=== PATIENT | male | born 1955 | race Caucasian/White ===

== ENCOUNTER 2018-02-20 13:22 | Inpatient (IN) ==
[2018-02-22 08:29] VITALS: BP 157/72
== END 2018-02-22 11:15 | disposition home or self-care (01) | DRG 287 ==
LOC: N.TELES 14:51 → N.CC 16:13 → N.TELEN 02-22 06:02
PROVIDERS: ADMIT Internal Medicine Interventional Cardiology; ATTEND Internal Medicine Interventional Cardiology

== ENCOUNTER 2018-10-14 11:11 | Observation (INO) ==
[2018-10-14] MEDS ORDERED: methylPREDNISolone SOD SUC 125 MG/2 ML VIAL IV STA (11:36)
[2018-10-14] MEDS ORDERED: MORPHINE 4 MG/1 ML VIAL IV STA (11:36)
[2018-10-14] MEDS ORDERED: ONDANSETRON 4 MG/2 ML VIAL IV STA (11:36)
[2018-10-14] MEDS ORDERED: ALBUTEROL/IPRATROPIUM 3 ML NEB RESP TX STA (11:36)
[2018-10-14] MEDS ORDERED: ASPIRIN 325 MG TABLET PO STA (11:36)
[2018-10-14] MEDS ORDERED: NITROGLYCERIN 2% OINT 1 INCH/GM PACK TOP STA (11:36)
[2018-10-14] MEDS ORDERED: ALUM/MAG/SIMETH/LIDO VISC 1:1 30 ML BOTTLE PO STA (11:36)
[2018-10-14 12:08] LABS: Basophils # 0.1 10*3/uL (0.0-0.2); Eosinophils # 0.2 10*3/uL (0.0-0.87); Eosinophils % 4.7 % (0.00-10.9); Hematocrit 41.6 VOL% (42.0-52.0); Hemoglobin 13.7 GM/DL (14.0-18.0); Immature Granulocytes % 0.6 %; Immature Granulocytes Absolute 0.03 #; Lymphocytes # 1.3 10*3/uL (1.4-4.0); Lymphocytes % 26.4 % (21.2-54.2); Mean Corpuscular HGB Conc 32.9 GM/DL (32-36); Mean Corpuscular Hemoglobin 34 PG (27-34); Mean Corpuscular Volume 104.3 FL (87-102); Mean Platelet Volume 8.7 FL (9.6-12.0); Monocytes # 0.7 10*3/uL (0.11-0.8); Monocytes % 13.4 % (1.7-12.7); Neutrophils # 2.7 10*3/uL (1.4-7.4); Neutrophils % 53.9 % (38.7-73.9); Platelet Count 292 T/CUMM (130-400); Red Blood Count 3.99 MC/CUMM (3.8-5.5); Red Cell Distribution Width 13.2 % (9.3-17.3); White Blood Count 5.1 T/CUMM (4-12)
[2018-10-14 12:16] LABS: PT Patient Result 10.6 SECS
[2018-10-14 12:54] LABS: Albumin 3.2 G/DL (3.4-5.0); Bilirubin,Total 1.1 MG/DL (0.2-1.0); Calcium 8.7 MG/DL (8.5-10.1); Osmolality,Calculated 271.8 MOS/KG (273-304); Potassium 4.8 MMOL/L (3.5-5.1); Total Protein 7.2 G/DL (6.4-8.3)
[2018-10-14] MEDS ORDERED: MORPHINE 4 MG/1 ML VIAL IV PRN (13:46)
[2018-10-14] MEDS ORDERED: diphenhydrAMINE CAP 25 MG CAPSULE PO PRN (13:46)
[2018-10-14] MEDS ORDERED: NICOTINE 21 MG/24 HR PATCH TRANSDERM PRN (13:46)
[2018-10-14] MEDS ORDERED: MAGNESIUM SULF RIDER 4 GM in PREMIX 1 EACH IV PRN (13:46)
[2018-10-14] MEDS ORDERED: ZALEPLON 5 MG CAPSULE PO PRN (13:46)
[2018-10-14] MEDS ORDERED: DOCUSATE SODIUM 100 MG CAPSULE PO PRN (13:46)
[2018-10-14] MEDS ORDERED: POTASSIUM CHLORIDE 20 MEQ TABLET PO PRN ×2 (13:46→13:53)
[2018-10-14] MEDS ORDERED: MAGNESIUM SULF RIDER 2 GM in PREMIX 1 EACH IV PRN (13:46)
[2018-10-14] MEDS ORDERED: ONDANSETRON 4 MG/2 ML VIAL IV PRN (13:46)
[2018-10-14] MEDS ORDERED: PROMETHAZINE 25 MG TABLET PO PRN (13:46)
[2018-10-14] MEDS ORDERED: BISACODYL 5 MG TABLET PO PRN (13:46)
[2018-10-14] MEDS ORDERED: guaiFENesin/DM ER 600-30 MG TABLET PO PRN (13:46)
[2018-10-14] MEDS ORDERED: NITROGLYCERIN SL 0.4 MG TABLET SL PRN (13:53)
[2018-10-14] MEDS: ALBUTEROL/IPRATROPIUM 3 ML NEB RESP TX SCH ×3 (14:19→23:53)
[2018-10-14 14:33] LABS: Risk Ratio 3.39; Thyroid Stimulating Hormone 1.25 uIU/ml (0.358-3.74); VLDL CHOLESTEROL 35.4 MG/DL
[2018-10-14 15:38] LABS: ABG Base Excess -3.7 MMOL/L (-2.5-2.5); ABG Oxygen Saturation 82.5 % (95-100); ABG PCO2 41.1 MM HG (35-48); ABG PH 7.336 (7.35-7.45); ABG PO2 50.2 MM HG (80-95); ABG TCO2 19.2 MMOL/L (23-27)
[2018-10-14] MEDS: ENOXAPARIN 80 MG/0.8 ML SYRINGE SUBCUT SCH (16:30)
[2018-10-14] MEDS: NITROGLYCERIN 2% OINT 1 INCH/GM PACK TOP SCH (19:05)
[2018-10-14 20:52] LABS: Apearance,Urine CLEAR (Clear); Blood, Urine Negative (Negative); Glucose,Urine (UA) Negative (Negative); Hyaline Casts,Urine 33 /LPF (0-3); Ketones,Urine Negative (Negative); Mucus,Urine Occasional /LPF (Occasional); Nitrite,Urine Negative (Negative); Protein,Urine 30 MG/DL; Squamous Epithelial Cell,Urine Occasional /HPF (0-10); Urine Color Yellow (Yellow); Urine Specific Gravity 1.028 (1.001-1.035); Urine Urobilinogen < 2.0 EU/DL (0.2-1.0)
[2018-10-14 20:57] LABS: Bilirubin,Urine Moderate mg/dL (Negative)
[2018-10-14] MEDS ORDERED: ATORVASTATIN 40 MG TABLET PO SCH (21:00)
[2018-10-14] MEDS ORDERED: RANOLAZINE 500 MG TABLET PO SCH (21:00)
[2018-10-14] MEDS ORDERED: POTASSIUM CHLORIDE 10 MEQ TABLET PO SCH (21:00)
[2018-10-14] MEDS: METOPROLOL SUCCINATE XL 100 MG TABLET PO SCH (21:52)
[2018-10-14] MEDS: NABUMETONE 500 MG TABLET PO SCH (21:52)
[2018-10-14] MEDS: TOFACITINIB CITRATE 5 MG PO SCH (21:53)
[2018-10-15] MEDS: NITROGLYCERIN 2% OINT 1 INCH/GM PACK TOP SCH ×4 (00:38→18:29)
[2018-10-15] MEDS: ALBUTEROL/IPRATROPIUM 3 ML NEB RESP TX SCH ×6 (03:14→23:15)
[2018-10-15] MEDS: ENOXAPARIN 80 MG/0.8 ML SYRINGE SUBCUT SCH ×2 (04:57→14:15)
[2018-10-15 06:05] LABS: Basophils % 0.8 % (0.0-0.8); Eosinophils % 0.6 % (0.00-10.9); Hematocrit 35.6 VOL% (42.0-52.0); Immature Granulocytes % 0.4 %; Immature Granulocytes Absolute 0.02 #; Lymphocytes # 1.2 10*3/uL (1.4-4.0); Lymphocytes % 22.9 % (21.2-54.2); Mean Corpuscular HGB Conc 32.9 GM/DL (32-36); Mean Corpuscular Hemoglobin 34 PG (27-34); Mean Corpuscular Volume 103.2 FL (87-102); Mean Platelet Volume 9.4 FL (9.6-12.0); Monocytes % 18.8 % (1.7-12.7); Neutrophils # 2.9 10*3/uL (1.4-7.4); Neutrophils % 56.5 % (38.7-73.9); Platelet Count 260 T/CUMM (130-400); Red Blood Count 3.45 MC/CUMM (3.8-5.5); Red Cell Distribution Width 13.2 % (9.3-17.3); White Blood Count 5.2 T/CUMM (4-12)
[2018-10-15 06:06] LABS: Hemoglobin 11.7 GM/DL (14.0-18.0)
[2018-10-15 06:08] LABS: Alanine Aminotransferase 17 U/L (16-61); Albumin 2.5 G/DL (3.4-5.0); Alkaline Phosphatase 68 U/L (45-117); Aspartate Amino Transferase 24 U/L (0-37); Blood Urea Nitrogen 11 MG/DL (7-18); Calcium 8.3 MG/DL (8.5-10.1); Glucose 120 MG/DL (74-106); Osmolality,Calculated 274.7 MOS/KG (273-304); Potassium 5.4 MMOL/L (3.5-5.1); Sodium 138 MMOL/L (136-145); Total Protein 6.6 G/DL (6.4-8.3); Troponin I < 0.015 NG/ML (0.00-0.045)
[2018-10-15 06:30] LABS: Anisocytosis 2+; Band Neutrophils 2 % (0-10); Eosinophils 1 % (0-10); Hypochromasia 1+; Lymphocytes 22 % (20-55); Macrocytosis 2+; Nucleated Red Blood Cells 2 (0-5); Ovalocytes Few; Platelet Estimate Normal; Segmented Neutrophils 56 % (50-85); Target Cells 1+; Total Cells Counted 100
[2018-10-15] MEDS: LEFLUNOMIDE 10 MG TABLET PO SCH (09:30)
[2018-10-15] MEDS: CLOPIDOGREL 75 MG TABLET PO SCH (09:31)
[2018-10-15] MEDS: ASPIRIN EC 81 MG TABLET PO SCH (09:31)
[2018-10-15] MEDS: PANTOPRAZOLE 40 MG TABLET PO SCH (09:31)
[2018-10-15] MEDS: FUROSEMIDE 40 MG TABLET PO SCH (09:31)
[2018-10-15] MEDS: RANOLAZINE 500 MG TABLET PO SCH ×2 (09:31→20:37)
[2018-10-15] MEDS: METOPROLOL SUCCINATE XL 100 MG TABLET PO SCH ×2 (09:31→20:37)
[2018-10-15] MEDS: NABUMETONE 500 MG TABLET PO SCH ×2 (09:35→20:37)
[2018-10-15] MEDS: SODIUM CHLORIDE 0.9% 1,000 ML IV SCH ×2 (09:39→18:30)
[2018-10-15] MEDS: TOFACITINIB CITRATE 5 MG PO SCH ×2 (09:39→21:29)
[2018-10-15] MEDS ORDERED: MAGNESIUM SULF RIDER 2 GM in PREMIX 1 EACH IV PRN (12:44)
[2018-10-15] MEDS ORDERED: POTASSIUM CHLORIDE RIDER 10 MEQ in PREMIX 1 EACH IV PRN (12:44)
[2018-10-15] MEDS ORDERED: SODIUM POLYSTYRENE SULFATE 15 GM/60 ML BOTTLE PO STA (12:49)
[2018-10-15] MEDS: methylPREDNISolone SOD SUC 40 MG/1 ML VIAL IV SCH (17:45)
[2018-10-15] MEDS: ATORVASTATIN 40 MG TABLET PO SCH (20:36)
[2018-10-16] MEDS: methylPREDNISolone SOD SUC 40 MG/1 ML VIAL IV SCH ×3 (01:40→18:15)
[2018-10-16] MEDS: ENOXAPARIN 80 MG/0.8 ML SYRINGE SUBCUT SCH ×2 (01:40→14:32)
[2018-10-16] MEDS: ALBUTEROL/IPRATROPIUM 3 ML NEB RESP TX SCH ×6 (03:25→23:54)
[2018-10-16] MEDS: SODIUM CHLORIDE 0.9% 1,000 ML IV SCH ×2 (04:00→14:31)
[2018-10-16] MEDS: NITROGLYCERIN 2% OINT 1 INCH/GM PACK TOP SCH ×4 (04:24→18:03)
[2018-10-16 05:28] LABS: Basophils % 0.5 % (0.0-0.8); Hematocrit 36.7 VOL% (42.0-52.0); Immature Granulocytes % 0.5 %; Immature Granulocytes Absolute 0.02 #; Lymphocytes # 0.5 10*3/uL (1.4-4.0); Lymphocytes % 11.9 % (21.2-54.2); Mean Corpuscular HGB Conc 32.7 GM/DL (32-36); Mean Corpuscular Hemoglobin 34 PG (27-34); Mean Corpuscular Volume 104.3 FL (87-102); Mean Platelet Volume 8.7 FL (9.6-12.0); Monocytes # 0.2 10*3/uL (0.11-0.8); Monocytes % 5.5 % (1.7-12.7); Neutrophils # 3.6 10*3/uL (1.4-7.4); Neutrophils % 81.6 % (38.7-73.9); Platelet Count 268 T/CUMM (130-400); Red Blood Count 3.52 MC/CUMM (3.8-5.5); Red Cell Distribution Width 13.2 % (9.3-17.3); White Blood Count 4.4 T/CUMM (4-12)
[2018-10-16 05:57] LABS: Calcium 7.8 MG/DL (8.5-10.1); Osmolality,Calculated 282.3 MOS/KG (273-304)
[2018-10-16] MEDS: METOPROLOL SUCCINATE XL 100 MG TABLET PO SCH ×2 (09:36→20:50)
[2018-10-16] MEDS: ASPIRIN EC 81 MG TABLET PO SCH (09:36)
[2018-10-16] MEDS: RANOLAZINE 500 MG TABLET PO SCH ×2 (09:36→20:49)
[2018-10-16] MEDS: PANTOPRAZOLE 40 MG TABLET PO SCH (09:37)
[2018-10-16] MEDS: CLOPIDOGREL 75 MG TABLET PO SCH (09:37)
[2018-10-16] MEDS: NABUMETONE 500 MG TABLET PO SCH ×2 (09:37→20:50)
[2018-10-16] MEDS: LEFLUNOMIDE 10 MG TABLET PO SCH (09:39)
[2018-10-16] MEDS: FUROSEMIDE 40 MG TABLET PO SCH (09:39)
[2018-10-16] MEDS: TOFACITINIB CITRATE 5 MG PO SCH ×2 (10:16→23:29)
[2018-10-16] MEDS ORDERED: DIAZEPAM 5 MG TABLET PO ONE (12:00)
[2018-10-16] MEDS ORDERED: diphenhydrAMINE CAP 25 MG CAPSULE PO ONE (12:00)
[2018-10-16] MEDS ORDERED: HEPARIN/NACL 0.9% 2 UNITS/ML 1,000 ML IV ONE (13:21)
[2018-10-16] MEDS ORDERED: LIDOCAINE 1%/EPI INJ 20 ML VIAL ONE (13:21)
[2018-10-16] MEDS ORDERED: MIDAZOLAM 2 MG/2 ML VIAL ONE (14:10)
[2018-10-16] MEDS ORDERED: fentaNYL 100 MCG/2 ML VIAL ONE (14:10)
[2018-10-16] MEDS ORDERED: ALUM/MAG/SIMETH/LIDO VISC 1:1 30 ML BOTTLE PO ONE (19:02)
[2018-10-16] MEDS: ATORVASTATIN 40 MG TABLET PO SCH (20:50)
[2018-10-17] MEDS: NITROGLYCERIN 2% OINT 1 INCH/GM PACK TOP SCH ×2 (00:14→05:55)
[2018-10-17] MEDS: methylPREDNISolone SOD SUC 40 MG/1 ML VIAL IV SCH ×2 (01:55→09:05)
[2018-10-17] MEDS: ENOXAPARIN 80 MG/0.8 ML SYRINGE SUBCUT SCH (01:56)
[2018-10-17] MEDS: ALBUTEROL/IPRATROPIUM 3 ML NEB RESP TX SCH ×2 (03:28→10:36)
[2018-10-17 05:37] LABS: Basophils % 0.3 % (0.0-0.8); Hematocrit 34.2 VOL% (42.0-52.0); Hemoglobin 11.1 GM/DL (14.0-18.0); Immature Granulocytes % 0.3 %; Immature Granulocytes Absolute 0.02 #; Lymphocytes # 0.6 10*3/uL (1.4-4.0); Lymphocytes % 7.6 % (21.2-54.2); Mean Corpuscular HGB Conc 32.5 GM/DL (32-36); Mean Corpuscular Hemoglobin 34 PG (27-34); Mean Corpuscular Volume 104.3 FL (87-102); Mean Platelet Volume 9.2 FL (9.6-12.0); Monocytes # 0.4 10*3/uL (0.11-0.8); Monocytes % 5.8 % (1.7-12.7); Neutrophils # 6.3 10*3/uL (1.4-7.4); Platelet Count 286 T/CUMM (130-400); Red Blood Count 3.28 MC/CUMM (3.8-5.5); Red Cell Distribution Width 13.4 % (9.3-17.3); White Blood Count 7.4 T/CUMM (4-12)
[2018-10-17 05:52] LABS: Calcium 7.5 MG/DL (8.5-10.1); Osmolality,Calculated 283.3 MOS/KG (273-304); Potassium 3.8 MMOL/L (3.5-5.1)
[2018-10-17 07:58] VITALS: BP 113/70
[2018-10-17] MEDS: ASPIRIN EC 81 MG TABLET PO SCH (09:03)
[2018-10-17] MEDS: CLOPIDOGREL 75 MG TABLET PO SCH (09:04)
[2018-10-17] MEDS: FUROSEMIDE 40 MG TABLET PO SCH (09:04)
[2018-10-17] MEDS: RANOLAZINE 500 MG TABLET PO SCH (09:04)
[2018-10-17] MEDS: NABUMETONE 500 MG TABLET PO SCH (09:04)
[2018-10-17] MEDS: LEFLUNOMIDE 10 MG TABLET PO SCH (09:04)
[2018-10-17] MEDS: PANTOPRAZOLE 40 MG TABLET PO SCH (09:04)
[2018-10-17] MEDS: METOPROLOL SUCCINATE XL 100 MG TABLET PO SCH (09:05)
[2018-10-17] MEDS: TOFACITINIB CITRATE 5 MG PO SCH (09:09)
[2018-10-17] MEDS ORDERED: ISOSORBIDE MONONITRATE 30 MG TABLET PO ONE (21:00)
== END 2018-10-17 11:30 | disposition home or self-care (01) ==
LOC: N.ED 11:11 → N.EDINP 11:11 → N.TELES 19:11
PROVIDERS: ADMIT Internal Medicine Interventional Cardiology; ATTEND Internal Medicine Interventional Cardiology